=== PATIENT | female | born 1970 | race Two or more races ===

== ENCOUNTER 2019-07-03 22:35 | Emergency (ER) | payer MEDICAID ==
[~2019-07-03] VITALS: Ht 160 cm; Wt 66.2 kg
[2019-07-04 00:13] VITALS: BP 135/79
--- NOTE | 2019-07-04 00:37 | NUR ---
PT CAME TO ER BED 11 WITH DAUGHTER C/O LEFT ARM ELBOW PAIN 04/03. PATIENT STATES THAT SHE WENT TO A CLINIC TO BE SEEN FOR HER SEVERE ARM PAIN FOR MEDICATION BUT NEVER RECEIVED. MEDICATION. PT ALSO STATES THAT SHE HAS HEMATURA, AND ROUND CIRCULAR RAISED NODULES THAT IS POSSIBLE FOR RINGWORMS. AAOX4. NO SOB BREATHING EVENLY AND UNLABORED
[2019-07-04 00:46] LABS: APPEARANCE,URINE Clear (CLEAR); BILIRUBIN,URINE Negative (NEGATIVE); BLOOD, URINE Trace-lysed Ery/uL (NEGATIVE); COLOR,URINE Yellow (YELLOW); KETONES,URINE Negative (NEGATIVE); LEUKOCYTE ESTERASE ,URINE Negative (NEGATIVE); NITRITE, URINE Negative (NEGATIVE); PROTEIN,URINE Negative (NEGATIVE); UGLUCOSE 100 MG/DL mg/dL (NEGATIVE); UROBILINOGEN,URINE 0.2 EU/dL (0.2)
[2019-07-04 01:18] LABS: BACTERIA,URINE Few /HPF (None Seen); SQUAMOUS EPITHELIAL CELL,UR Few /HPF (None Seen)
[2019-07-04] MEDS ORDERED: DEXAMETHASONE 1 MG TABLET PO ONE (02:00)
[2019-07-04] MEDS ORDERED: DEXAMETHASONE 4 MG TABLET ONE (02:01)
[2019-07-04] MEDS ORDERED: DEXAMETHASONE 1 MG TABLET ONE (02:11)
--- NOTE | 2019-07-04 02:19 | NUR ---
Patient discharged to home in stable condition. Written and verbal after care instructions given. Patient verbalizes understanding of instruction.
== END 2019-07-04 02:20 | disposition home or self-care (01) ==
LOC: ER 22:38
DX: N39.0 Urinary tract infection, site not specified (principal); E11.9 Type 2 diabetes mellitus without complications
CPT/HCPCS: 81001; 82962; 99283; J8540 ×2; 81000-TC